=== PATIENT | female | born 1985 | race Caucasian/White ===

== ENCOUNTER 2019-10-25 11:58 | Observation (INO) | payer OTHER ==
[2019-10-25] MEDS ORDERED: SODIUM CHLORIDE 0.9% 1,000 ML IV ONE (13:09)
[2019-10-25] MEDS ORDERED: ONDANSETRON 4 MG/2 ML VIAL IVP STA (13:09)
[2019-10-25] MEDS ORDERED: diazePAM INJ 5 MG/ML SYRINGE IVP STA (13:09)
[2019-10-25 13:30] LABS: BASOPHILS # (AUTO) 0.1 10^3/uL (0.0-0.1); BASOPHILS % (AUTO) 0.7 %; EOSINOPHILS # (AUTO) 0.3 10^3/uL (0.0-0.7); EOSINOPHILS % (AUTO) 2.5 %; HGB - HEMOGLOBIN 14.3 g/dL (12.0-16.0); LYMPHOCYTES # (AUTO) 2.8 10^3/uL (1.5-3.5); LYMPHOCYTES % (AUTO) 28.7 %; MEAN CORPUSCULAR HEMOGLOBIN 32.1 pg (27.0-31.0); MEAN CORPUSCULAR HGB CONC 34.7 g/dL (32.0-36.0); MEAN CORPUSCULAR VOLUME 92.4 fL (81.0-99.0); MEAN PLATELET VOLUME 10.8 fL (7.9-10.8); MONOCYTES # (AUTO) 0.7 10^3/uL (0.0-1.0); MONOCYTES % (AUTO) 6.7 %; NEUTROPHILS # (AUTO) 5.9 10^3/uL (1.5-6.6); NEUTROPHILS % (AUTO) 60.6 %; PLT - PLATELET COUNT 205 10^3/uL (130-450); RED BLOOD COUNT 4.46 10^6/uL (4.20-5.40); RED CELL DISTRIBUTION WIDTH 13.5 % (12.0-15.0); WHITE BLOOD COUNT 9.8 x10^3/uL (4.8-10.8)
[2019-10-25] MEDS ORDERED: KETOROLAC 30 MG/ML VIAL IVP STA (13:43)
[2019-10-25 13:44] LABS: CALCIUM 8.7 mg/dL (8.5-10.3); CREATININE 0.8 mg/dL (0.4-1.0)
--- NOTE | 2019-10-25 15:02 | CT Report ---
Reason: dizziness Procedure Date: 10/25/2019 Accession Number: [id number] / [id number] Procedure: CT - HEAD WO CPT Code: Final Report FULL RESULT: EXAM: CT HEAD EXAM DATE: 10/25/2019 02:35 PM. CLINICAL HISTORY: Dizziness. COMPARISON: None. TECHNIQUE: Multiaxial CT images were obtained from the foramen magnum to the vertex. Reformats: Sagittal and coronal. IV contrast: None. In accordance with CT protocol optimization, one or more of the following dose reduction techniques were utilized for this exam: automated exposure control, adjustment of mA and/or KV based on patient size, or use of iterative reconstructive technique. FINDINGS: Parenchyma: No intraparenchymal hemorrhage. No evidence of mass, midline shift, or CT findings of infarction. Nieves-white differentiation is distinct. Extraaxial Spaces: Normal for age. No subdural or epidural collections identified. Ventricles: Normal in size and position. Sinuses and Orbits: Imaged paranasal sinuses, orbits, and mastoids show no significant abnormality. Bones: No evidence of fracture or calvarial defect. Other: None. IMPRESSION: No significant intracranial abnormality. RADIA
[2019-10-25] MEDS ORDERED: PROMETHAZINE INJ 25 MG in SODIUM CHLORIDE 0.9% 50 ML IV STA (15:11)
--- NOTE | 2019-10-25 16:33 | ED Physician Documentation ---
History of Present Illness - Stated complaint Stated Complaint: NAUSEA/DIZZINESS - Chief complaint Chief Complaint: Heent - History obtained from History obtained from: Patient - History of Present Illness Timing: Today - Additonal information Additional information: This is a 34-year-old woman who presents with her complaints that she is very dishes dizzy and nauseous and now her back hurts and her ear hurts. She woke up at 5 AM and before she even got out of bed she was nauseous with any movement in the room was spinning around. She denied any vomiting. She denies headache. She had a mildly stuffy nose and right ear pain. No fever. No cough. The patient took a baclofen this morning that she uses a muscle relaxer for her chronic back pain but it has not helped at all. She did not take any of her meds other medications for her asthma or anxiety. She denies stating she status post hysterectomy and oophorectomy. Review of Systems Constitutional: denies: Fever Ears: reports: Ear pain Nose: reports: Rhinorrhea / runny nose Throat: denies: Sore throat GI: reports: Nausea. denies: Vomiting, Diarrhea : reports: Hysterectomy. denies: Dysuria, Now EGA Musculoskeletal: reports: Back pain (Chronic back pain). denies: Neck pain Neurologic: denies: Generalized weakness, Focal weakness, Numbness, Near syncope, Syncope, Headache Endocrine: reports: Other (She is not diabetic) PD PAST MEDICAL HISTORY - Past Medical History Past Medical History: Yes Cardiovascular: Hypertension, High cholesterol Respiratory: Asthma Neuro: None Endocrine/Autoimmune: None GI: None REAL ESTATE CLERK: Endometriosis : None HEENT: None Psych: None Musculoskeletal: None Derm: None Other Past Medical History: vertigo - Past Surgical History Past Surgical History: Yes General: Gastric surgery /REAL ESTATE CLERK: section, Hysterectomy, Oophrectomy - Allergies Allergies/Adverse Reactions: Allergies Allergy/AdvReac Type Severity Reaction Status Date / Time No Known Drug Allergies Allergy Verified 10/25/19 12:30 - Social History Does the pt smoke?: No Smoking Status: Never smoker Does the pt drink ETOH?: Yes Does the pt have substance abuse?: No - Immunizations Immunizations are current?: Yes - POLST Patient has POLST: No PD ED PE NORMAL - Vitals Vital signs reviewed: Yes - General General: Alert and oriented X 3, No acute distress, Well developed/nourished, Other (Overweight 34-year-old woman who sitting on the exam chair leaning forward holding an emesis bag in front of her with her eyes closed and leaning her head down onto her hand.) - HEENT HEENT: Atraumatic - Cardiac Cardiac: RRR, No murmur, Strong equal pulses - Respiratory Respiratory: No respiratory distress, Clear bilaterally - Abdomen Abdomen: Normal bowel sounds, Soft - Neuro Neuro: Alert and oriented X 3, No motor deficit, No sensory deficit, Normal speech, Other (The exam had to be cut short due to the fact that as I was testing the patient's extraocular muscles she just suddenly started dry heaving she did have nystagmus bilaterally. There were no other apparent neurological deficits. Pupils were equal round reactive to light and all the extraocular muscles were intact.) Results - Vitals Vitals: Vital Signs - 24 hr 10/25/19 10/25/19 10/25/19 12:27 12:42 16:42 Temperature 36.4 C L 36.6 C 36.5 C Heart Rate 85 75 94 Respiratory 18 18 18 Rate Blood Pressure 144/95 H 150/84 H 126/62 O2 Saturation 100 97 99 Oxygen O2 Source Room air - EKG (time done) 1313 Rate: Rate (enter#) (75) Rhythm: NSR Intervals: No: Wide QRS Ischemia: Non specific changes Compare to prior EKG: Old EKG unavailable - Labs Labs: Laboratory Tests 10/25/19 10/25/19 13:22 13:22 WBC 9.8 RBC 4.46 Hgb 14.3 Hct 41.2 MCV 92.4 MCH 32.1 H MCHC 34.7 RDW 13.5 Plt Count 205 MPV 10.8 Neut # (Auto) 5.9 Lymph # (Auto) 2.8 [place] # (Auto) 0.7 Eos # (Auto) 0.3 Baso # (Auto) 0.1 Absolute Nucleated RBC 0.00 Nucleated RBC % 0.0 Sodium 135 Potassium 3.7 Chloride 100 L Carbon Dioxide 23 Anion Gap 12.0 BUN 11 Creatinine 0.8 Estimated GFR (MDRD) 82 L Glucose 99 Calcium 8.7 - Rads (name of study) ct head Radiology: See rad report (neg) PD MEDICAL DECISION MAKING - ED course Complexity details: reviewed results, re-evaluated patient, d/w patient ED course: Patient had an IV started and was given immediately Zofran 4 mg, Valium [address] of the head was negative. Her CBC and BMP were normal. She was complaining of the back pain to the nursing staff so she was given Toradol IV. She continued to complain of nausea so she was given Phenergan 25 mg IV and on reevaluation she is on her right side sleeping but when I aroused her she opened her eyes quick and then shut them because she was still dizzy and nauseous. Is also complaining of pain in her upper back which is a chronic pain for her she just cannot get it under control with all of this vomiting. She was given 4 mg of morphine IV and will reassess from there. 1726: Patient had some improvement following the morphine said that she was still dizzy but it was certainly less. I had a chance to examine her ears and they are both clear despite the right ear pain. She thought she could tolerate an oral medication so I have written for meclizine 50 mg p.o. and will reassess. 1804: The patient is still having dizziness and had some dry heaving. I think she should be admitted for observation and may end up warranting us MRI scan. Discussed with Dr. Newton and he is agreed to accept the patient for admission. Departure - Departure Disposition: ED Place in Observation Clinical Impression: Vertigo Condition: Good
[2019-10-25] MEDS ORDERED: MORPHINE 2 MG/ML CARPUJECT IVP STA (16:34)
[2019-10-25] MEDS ORDERED: MECLIZINE 12.5 MG TABLET PO STA (17:25)
[2019-10-25] MEDS ORDERED: PROCHLORPERAZINE 10 MG/2 ML VIAL IVP PRN (18:04)
[2019-10-25] MEDS ORDERED: ONDANSETRON 4 MG/2 ML VIAL IVP PRN (18:04)
[2019-10-25] MEDS ORDERED: SODIUM CHLORIDE FLUSH 0.9% 10 ML SYRINGE IVP PRN (18:04)
--- NOTE | 2019-10-25 20:29 | HISTORY & PHYSICAL EXAMINATION ---
Chief Complaint - Chief Complaint Chief Complaint: dizziness, nausea and vomiting History of Present Illness - Admitted From Admitted From:: [facility] - History Obtained From Records Reviewed: yes History obtained from: patient - History of Present Illness HPI Comment/Other: Patient is a 34 y/o female who presented to the ED with complain of dizziness, nausea and dry heaving which started this morning when she woke up. She reports feeling under the weather yesterday but thought it was because she was tired and her back was hurting. She took her kids to school then went to work. However, everything was spinning so her brought her to the ED. She denies headache or double vision. She reports tightness in the muscles of her left shoulder and back of neck since she slipped on ice 2 weeks ago. She denied chest pain, dyspnea, fever or chills. She reports abdominal pain but thinks it is from not eating. Work up in the ED included a CT of the brain, BMP and CC. These were unremarkable. She was given meclizine, valium, zofran and toradol with no improvement in her symptoms. As a result she was presented for admission. At bedside her nausea has subsided. She was able to tolerate jello. However her dizziness persists. She is being admitted for further evaluation and treatment. History - Past Medical History Cardiovascular: reports: Hypertension, High cholesterol Respiratory: reports: Asthma Neuro: reports: None Endocrine/Autoimmune: reports: None GI: reports: None PLASTIC WELDER: reports: Endometriosis : reports: None HEENT: reports: None Psych: reports: None Musculoskeletal: reports: None Derm: reports: None MRSA Hx?: No Other Past Medical History: vertigo - Past Surgical History General: reports: Gastric surgery /PLASTIC WELDER: reports: section, Hysterectomy, Oophrectomy - Family & Social History Family History Comment/Other: mother: fibromyalgia, HTN, Hyperlipidemia, Depression, Anxiety. father: HTN, Hyperlipidemia. son: ADHD Living arrangement: At home Living Situation: With family Social History Notes: She smoked about 1/4ppd X 17 yrs. She drinks alcohol socially. She denies any illicit drug use. - POLST Patient has POLST: No POLST Status: Full Code Meds/Allgy - Allergies Allergies/Adverse Reactions: Allergies Allergy/AdvReac Type Severity Reaction Status Date / Time No Known Drug Allergies Allergy Verified 10/25/19 12:30 Review of Systems - Constitutional Constitutional: reports: Poor appetite. denies: Fever, Chills - Eyes Eyes: reports: Blurred vision. denies: Vision loss, Dipolpia - Ears, Nose & Throat Ears, Nose & Throat: reports: Vertigo. denies: Tinnitus, Sore throat, Hoarseness - Cardiovascular Cariovascular: reports: Lightheadedness. denies: Chest pain, Edema, Syncope, Exertional dyspnea, Decr. exercise tolerance - Respiratory Respiratory: denies: Cough, Sputum production, Wheezing, SOB at rest, SOB with exertion - Gastrointestinal Gastrointestinal: reports: Nausea. denies: Abdominal pain, Vomiting, Coffee grounds emesis, Reflux/heartburn - Genitourinary Genitourinary: denies: Dysuria, Frequency, Urgency, Hematuria - Musculoskeletal Musculoskeletal: reports: Back pain (chronic). denies: Muscle pain - Integumentary Integumentary: denies: Rash, Pruritis, Lesions, Dryness - Neurological Neurological: reports: Dizziness. denies: General weakness, Focal weakness, Headache - Psychiatric Psychiatric: reports: Depression, Anxiety - Endocrine Endocrine: denies: Polyuria, Polydypsia - Hematologic/Lymphatic Hematologic/Lymphatic: denies: Anemia, Bruising Prior Level of Functionality: She is independent of activities of daily living Exam - Vital Signs Vital Signs: Vital Signs x48h Temp Pulse Pulse Resp BP BP Pulse Ox 10/25/19 19:05 36.4 C L 73 18 103/62 97 10/25/19 18:30 36.6 C 74 16 129/56 L 97 10/25/19 16:42 36.5 C 94 18 126/62 99 10/25/19 12:42 36.6 C 75 18 150/84 H 97 - Physical Exam General Appearance: positive: Alert, Mild distress Eyes Bilateral: positive: Normal inspection, PERRL, EOMI ENT: positive: Pharynx nml, No signs of dehydration Neck: positive: Nml inspection, No JVD, Trachea midline Respiratory: positive: Chest non-tender, No respiratory distress, Breath sounds nml. negative: Wheezes, Rales, Rhonchi Cardiovascular: positive: Regular rate & rhythm Abdomen: positive: Non-tender, No organomegaly, Nml bowel sounds, No distention. negative: Guarding, Rebound Back: positive: Nml inspection Skin: positive: Color nml, No rash, Warm, Dry. negative: Cyanosis Extremities: positive: Non-tender, Full ROM, Nml appearance, No pedal edema Neurologic/Psychiatric: positive: Oriented x3, CN's nml (2-12), Motor nml, Sensation nml, Mood/affect nml Conclusion/Plan - Problem List (1) Vertigo Conclusion/Plan: DDx: BPPV vs Labyrinthitis. r/o CVA On meclizine, compazine and zofran If persists, will obtain MRI in the morning. If work up unremarkable, will refer to physical therapy for possibly Brayan maneuver (2) Hyperlipidemia Conclusion/Plan: Will resume atorvastatin once verified (3) Chronic back pain Conclusion/Plan: toradol ordered prn (4) Depression Conclusion/Plan: On zoloft (5) Anxiety Conclusion/Plan: Patient takes buspar (6) Asthma Conclusion/Plan: Not in exacerbation Albuterol prn (7) Hormone replacement therapy (HRT) Conclusion/Plan: Patient has Hx of hysterectomy. - Lab Results Fish Bones: 10/26/19 05:25 10/25/19 13:22 Core Measures - Anticipated LOS I expect patient to be DC'd or transferred within 96 hours.: Yes - DVT/VTE - Prophylaxis VTE/DVT Device ordered at admit?: Yes
[2019-10-25] MEDS: KETOROLAC 15 MG/ML VIAL IVP PRN (21:41)
[2019-10-25] MEDS: HEPARIN 5,000 UNIT/ML VIAL SUBQ SCH (21:56)
[2019-10-25] MEDS ORDERED: ALBUTEROL NEB 2.5 MG/3 ML INH PRN (22:18)
[2019-10-25] MEDS: SODIUM CHLORIDE FLUSH 0.9% 10 ML SYRINGE IVP SCH (23:58)
[2019-10-25] MEDS: MECLIZINE 12.5 MG TABLET PO PRN (23:58)
[2019-10-26] MEDS: KETOROLAC 15 MG/ML VIAL IVP PRN (05:25)
[2019-10-26] MEDS: MECLIZINE 12.5 MG TABLET PO PRN (05:25)
[2019-10-26 05:40] LABS: BASOPHILS % (AUTO) 0.6 %; EOSINOPHILS # (AUTO) 0.2 10^3/uL (0.0-0.7); EOSINOPHILS % (AUTO) 2.5 %; HGB - HEMOGLOBIN 13.1 g/dL (12.0-16.0); LYMPHOCYTES # (AUTO) 2.9 10^3/uL (1.5-3.5); LYMPHOCYTES % (AUTO) 40.2 %; MEAN CORPUSCULAR HEMOGLOBIN 31.7 pg (27.0-31.0); MEAN CORPUSCULAR HGB CONC 33.3 g/dL (32.0-36.0); MEAN CORPUSCULAR VOLUME 95.2 fL (81.0-99.0); MONOCYTES # (AUTO) 0.6 10^3/uL (0.0-1.0); MONOCYTES % (AUTO) 7.8 %; NEUTROPHILS # (AUTO) 3.5 10^3/uL (1.5-6.6); NEUTROPHILS % (AUTO) 48.2 %; PLT - PLATELET COUNT 171 10^3/uL (130-450); RED BLOOD COUNT 4.13 10^6/uL (4.20-5.40); RED CELL DISTRIBUTION WIDTH 13.6 % (12.0-15.0); WHITE BLOOD COUNT 7.2 x10^3/uL (4.8-10.8)
[2019-10-26 05:54] LABS: CALCIUM 8.3 mg/dL (8.5-10.3); CREATININE 0.8 mg/dL (0.4-1.0)
[2019-10-26 08:32] VITALS: BP 123/70
[2019-10-26] MEDS: SODIUM CHLORIDE FLUSH 0.9% 10 ML SYRINGE IVP SCH (08:45)
[2019-10-26] MEDS: HEPARIN 5,000 UNIT/ML VIAL SUBQ SCH (08:46)
--- NOTE | 2019-10-26 08:58 | Discharge Plan ---
Discharge Plan Problem Reviewed?: Yes Disposition: Home, Self Care Condition: Good Prescriptions: Meclizine HCl 25 mg PO Q6H PRN #10 tablet PRN Reason: Dizziness Diet: Regular Health Concerns: You were seen in the hospital because of severe vertigo. A CT scan of your head was normal. Your symptoms improved with meclizine which is a medication that can help with vertigo symptoms. You are now stable to be discharged home. You can continue to take meclizine as needed if you develop vertigo-like symptoms. If your symptoms return, please see your primary care physician or return to the emergency department. Plan of Treatment: You have been prescribed meclizine which you may take as prescribed as needed for vertigo-like symptoms and dizziness. Care Goals: Please follow-up with your primary care physician if your symptoms persist or return to the emergency department. No Smoking: If you smoke, Please STOP! Call for help. Follow-up with: Hari Mederos ARNP [Primary Care Provider] -
[2019-10-26] MEDS ORDERED: NICOTINE 14 MG PATCH TOP SCH (09:00)
--- NOTE | 2019-10-26 09:11 | DISCHARGE SUMMARY ---
"Discharge Summary Admit Date: 10/25/19 Discharge Date: 10/26/19 Discharging Provider: Yon Chaudhary Primary Care Provider: Hari Mederos Code Status: Attempt Resuscitation Condition at Discharge: Good Discharge Disposition: Home, Self Care - DIAGNOSES Admission Diagnoses: Vertigo Hyperlipidemia Chronic back pain Depression Anxiety Asthma Hormone replacement therapy Discharge Diagnoses with Status of Each Condition: Vertigo - improved. Reports her vertigo symptoms have improved she is able to ambulate without difficulty. Still has occasional dizziness but she would like to go home. She is prescribed meclizine 25 mg which she was asked to take as needed. I have also asked her to follow-up with her primary care physician if symptoms persist. Hyperlipidemia - stable. Continue her home statin. Chronic back pain - stable. We will continue her home medications. Depression - stable. She will continue her home Prozac. Anxiety - stable. We will continue her home prazosin and BuSpar. Asthma - stable. She will continue her home Symbicort, albuterol, Singulair. Hormone replacement therapy - She will continue him estrogen therapy. - HPI History of Present Illness: H&P per Dr. Ramirez on 10/25/19: Patient is a 34 y/o female who presented to the ED with complain of dizziness, nausea and dry heaving which started this morning when she woke up. She reports feeling under the weather yesterday but thought it was because she was tired and her back was hurting. She took her kids to school then went to work. However, everything was spinning so her brought her to the ED. She denies headache or double vision. She reports tightness in the muscles of her left shoulder and back of neck since she slipped on ice 2 weeks ago. She denied chest pain, dyspnea, fever or chills. She reports abdominal pain but thinks it is from not eating. Work up in the ED included a CT of the brain, BMP and CC. These were unremarkable. She was given meclizine, valium, zofran and toradol with no improvement in her symptoms. As a result she was presented for admission. At bedside her nausea has subsided. She was able to tolerate jello. However her dizziness persists. She is being admitted for further evaluation and treatment. - CONSULTS | PROCEDURES Procedures: CT head. - HOSPITAL COURSE Hospital Course: Admitted for intractable vertigo after she received treatment emergency department which included Toradol, meclizine, Valium, Zofran. A CT of the head was unremarkable. The following morning, she states her symptoms had significantly improved with just the use of meclizine as needed. She reported no more vertigo-like symptoms but continued to have some dizziness. She was eager to go home and therefore she was discharged and was provided with meclizine to take as needed. I recommended that she follow-up with her primary care physician if her symptoms persist. She was agreeable to this. - ALLERGIES Allergies/Adverse Reactions: Allergies Allergy/AdvReac Type Severity Reaction Status Date / Time No Known Drug Allergies Allergy Verified 10/25/19 12:30 - MEDICATIONS Home Medications: Ambulatory Orders Medication Instructions Recorded Confirmed Meclizine HCl 25 mg PO Q6H PRN #10 tablet 10/26/19 - PHYSICAL EXAM AT DISCHARGE General Appearance: positive: No acute distress, Alert Eyes Bilateral: positive: Normal inspection, PERRL, EOMI, Conjunctivae nml, Other (No nystagmus.) ENT: positive: ENT inspection nml Neck: positive: Nml inspection Respiratory: positive: No respiratory distress. negative: Wheezes, Rales, Rhonchi Cardiovascular: positive: Regular rate & rhythm. negative: Tachycardia, Bradycardia Abdomen: positive: Non-tender, No distention. negative: Tenderness Skin: positive: No rash, Warm, Dry Extremities: positive: Full ROM, No pedal edema Neurologic/Psychiatric: positive: Oriented x3, Motor nml. negative: Disoriented to person, Disoriented to place, Disoriented to time, Weakness - LABS Result Diagrams: 10/26/19 05:25 10/26/19 05:25 - FOLLOW UP Follow Up: She was asked to follow-up with her primary care physician. - TIME SPENT Time Spent in Discharge (Minutes): 30"
== END 2019-10-26 10:57 | disposition home or self-care (01) ==
LOC: ED 11:58 → MS2 18:04 → MS3 18:05
PROVIDERS: ADMIT Internal Medicine; ATTEND Internal Medicine
DX: R42 Dizziness and giddiness (principal); R11.2 Nausea with vomiting, unspecified; H92.01 Otalgia, right ear; R10.9 Unspecified abdominal pain; M54.89 Other dorsalgia; H55.00 Unspecified nystagmus; G89.29 Other chronic pain; J45.909 Unspecified asthma, uncomplicated; E78.5 Hyperlipidemia, unspecified; F32.9 Major depressive disorder, single episode, unspecified; F41.9 Anxiety disorder, unspecified; I10 Essential (primary) hypertension; Z90.710 Acquired absence of both cervix and uterus; Z79.899 Other long term (current) drug therapy; Z79.51 Long term (current) use of inhaled steroids; Z79.890 Hormone replacement therapy; Z87.891 Personal history of nicotine dependence
CPT/HCPCS: 36415; 70450; 80048; 85025; 93005; 96361; 96365; 96372; 96375; 96376; 99284; 99285; 99406; A9270; G0378; J7040

== ENCOUNTER 2020-04-01 21:21 | Emergency (ER) | payer OTHER ==
[2020-04-01 21:48] LABS: BILIRUBIN,URINE NEGATIVE (NEGATIVE); GLUCOSE, URINE (UA) NEGATIVE (NEGATIVE); KETONES,URINE (UA) NEGATIVE (NEGATIVE); LEUKOCYTE ESTERASE, URINE NEGATIVE (NEGATIVE); NITRITE,URINE NEGATIVE (NEGATIVE); OCCULT BLOOD,URINE NEGATIVE (NEGATIVE); PH,URINE 6.5 PH (5.0-7.5); PROTEIN,URINE NEGATIVE (NEGATIVE); UROBILINOGEN,URINE 0.2 (NORMAL) E.U./dL (NORMAL)
[2020-04-01 21:51] LABS: CLARITY,URINE CLEAR (CLEAR)
[2020-04-01 21:52] LABS: HCG UR QUAL NEGATIVE
[2020-04-01 21:55] LABS: BASOPHILS # (AUTO) 0.1 10^3/uL (0.0-0.1); BASOPHILS % (AUTO) 0.5 %; EOSINOPHILS # (AUTO) 0.2 10^3/uL (0.0-0.7); EOSINOPHILS % (AUTO) 1.9 %; HGB - HEMOGLOBIN 13.7 g/dL (12.0-16.0); LYMPHOCYTES # (AUTO) 2.8 10^3/uL (1.5-3.5); LYMPHOCYTES % (AUTO) 29.4 %; MEAN CORPUSCULAR HEMOGLOBIN 30.4 pg (27.0-31.0); MEAN CORPUSCULAR HGB CONC 33.6 g/dL (32.0-36.0); MEAN CORPUSCULAR VOLUME 90.5 fL (81.0-99.0); MEAN PLATELET VOLUME 10.8 fL (7.9-10.8); MONOCYTES # (AUTO) 0.5 10^3/uL (0.0-1.0); MONOCYTES % (AUTO) 5.6 %; NEUTROPHILS # (AUTO) 5.9 10^3/uL (1.5-6.6); NEUTROPHILS % (AUTO) 62.2 %; PLT - PLATELET COUNT 157 10^3/uL (130-450); RED BLOOD COUNT 4.51 10^6/uL (4.20-5.40); RED CELL DISTRIBUTION WIDTH 13.2 % (12.0-15.0); WHITE BLOOD COUNT 9.5 x10^3/uL (4.8-10.8)
[2020-04-01 22:10] LABS: ALBUMIN 4.4 g/dL (3.2-5.5); ALBUMIN/GLOBULIN RATIO 1.4 (1.0-2.2); BILIRUBIN,TOTAL 0.7 mg/dL (0.2-1.0); CALCIUM 9.1 mg/dL (8.5-10.3); CREATININE 0.8 mg/dL (0.4-1.0); TOTAL PROTEIN 7.6 g/dL (6.7-8.2)
[2020-04-01] MEDS ORDERED: KETOROLAC 30 MG/ML VIAL IVP STA (22:57)
[2020-04-01] MEDS ORDERED: ONDANSETRON 4 MG/2 ML VIAL IVP STA (22:57)
[2020-04-01] MEDS ORDERED: IOVERSOL 320 100 ML VIAL IVP ONE ×3 (23:20→23:48)
[2020-04-02] MEDS ORDERED: HYDROmorphone 1 MG/ML CARPUJECT IVP STA ×2 (00:04→01:58)
[2020-04-02] MEDS ORDERED: HYDROcod/ACET 5/325 Prepack 4 PO STA (01:59)
[2020-04-02 02:29] VITALS: BP 142/93
--- NOTE | 2020-04-02 07:24 | ED Physician Documentation ---
PD HPI ABD PAIN - Stated complaint Stated Complaint: LOW BACK PAIN, FREQUENT URINATION - Chief complaint Chief Complaint: Abd Pain - History obtained from History obtained from: Patient - History of Present Illness Timing - onset: How many days ago (2-3) Timing - duration: Days Timing - details: Abrupt onset, Intermittant Pain level now: 6 Quality: Pain Location: RLQ Radiation: Right flank Associated symptoms: Nausea. No: Fever, Vomiting, Diarrhea, Constipation Similar symptoms before: Diagnosis (similar to previous renal colic) Recently seen: Not recently seen - Additional information Additional information: "last couple of days, I've had side pain", c/o right abdominal and right flank pain Review of Systems Constitutional: denies: Fever, Chills, Sweats Cardiac: reports: Reviewed and negative Respiratory: reports: Reviewed and negative GI: reports: Abdominal Pain, Nausea. 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 : None HEENT: None Psych: Depression, Anxiety, ADD/ADHD Musculoskeletal: None Derm: None - Past Surgical History Past Surgical History: Yes General: Gastric surgery /WET PLANT OPERATOR: section, Hysterectomy, Oophrectomy - Present Medications Home Medications: Ambulatory Orders Medication Instructions Recorded Confirmed Albuterol Sulfate [Albuterol 8.5 gm IH QID PRN 04/01/20 04/01/20 Sulfate Hfa] Budesonide/Formoterol Fumarate 10.2 gm IH DAILY 04/01/20 04/01/20 [Symbicort 160-4.5 Mcg Inhaler] Dextroamphetamine/Amphetamine 10 mg PO DAILY 04/01/20 04/01/20 [Adderall 10 mg Tablet] Estradiol [Estrace] 1.5 mg PO DAILY 04/01/20 04/01/20 Fluoxetine HCl [Prozac] 80 mg PO DAILY 04/01/20 04/01/20 Methylphenidate HCl [Concerta] 36 mg PO DAILY 04/01/20 04/01/20 Pravastatin [Pravachol] 80 mg ORAL DAILY 04/01/20 04/01/20 Progesterone, Micronized 100 mg PO DAILY 04/01/20 04/01/20 [Progesterone] Oxycodone HCl/Acetaminophen 1 - 2 each PO Q6H PRN #10 tablet 04/02/20 [Percocet 5-325 mg Tablet] - Allergies Allergies/Adverse Reactions: Allergies Allergy/AdvReac Type Severity Reaction Status Date / Time No Known Drug Allergies Allergy Verified 04/01/20 21:33 - Social History Does the pt smoke?: No Smoking Status: Never smoker Does the pt drink ETOH?: Yes Does the pt have substance abuse?: No - Immunizations Immunizations are current?: Yes - POLST Patient has POLST: No POLST Status: Full Code PD ED PE NORMAL - Vitals Vital signs reviewed: Yes - General General: Alert and oriented X 3, No acute distress, Well developed/nourished - HEENT HEENT: Moist mucous membranes - Neck Neck: Supple, no meningeal sign - Cardiac Cardiac: RRR, No murmur - Respiratory Respiratory: No respiratory distress, Clear bilaterally - Abdomen Abdomen: Soft, Non distended, Other (mild RLQ TTP without rebound or guarding) - Back Back: No CVA TTP - Derm Derm: Normal color, Warm and dry, No rash Results - Vitals Vitals: Vital Signs - 24 hr 04/02/20 04/02/20 04/02/20 00:44 01:39 02:28 Heart Rate 78 90 97 Respiratory 18 18 18 Rate Blood Pressure 121/87 H 129/83 H 142/93 H O2 Saturation 99 96 99 Oxygen O2 Source Room air - Labs Labs: Laboratory Tests 04/01/20 04/01/20 04/01/20 21:36 21:50 21:50 WBC 9.5 RBC 4.51 Hgb 13.7 Hct 40.8 MCV 90.5 MCH 30.4 MCHC 33.6 RDW 13.2 Plt Count 157 MPV 10.8 Neut # (Auto) 5.9 Lymph # (Auto) 2.8 [place] # (Auto) 0.5 Eos # (Auto) 0.2 Baso # (Auto) 0.1 Absolute Nucleated RBC 0.00 Nucleated RBC % 0.0 Sodium 136 Potassium 3.5 Chloride 99 L Carbon Dioxide 27 Anion Gap 10.0 BUN 9 Creatinine 0.8 Estimated GFR (MDRD) 82 L Glucose 92 Calcium 9.1 Total Bilirubin 0.7 AST 19 ALT 22 Alkaline Phosphatase 65 Total Protein 7.6 Albumin 4.4 Globulin 3.2 Albumin/Globulin Ratio 1.4 Lipase 136 H Urine Color YELLOW Urine Clarity CLEAR Urine pH 6.5 Ur Specific [place] <=1.005 Urine Protein NEGATIVE Urine Glucose (UA) NEGATIVE Urine Ketones NEGATIVE Urine Occult Blood NEGATIVE Urine Nitrite NEGATIVE Urine Bilirubin NEGATIVE Urine Urobilinogen 0.2 (NORMAL) Ur Leukocyte Esterase NEGATIVE Ur Microscopic Review NOT INDICATED Urine Culture Comments NOT INDICATED Urine HCG, Qual NEGATIVE - Rads (name of study) CT A/P Radiology: Prelim report reviewed, See rad report PD MEDICAL DECISION MAKING - ED course Complexity details: reviewed results, re-evaluated patient, considered differential, d/w patient Departure - Departure Disposition: 01 Home, Self Care Clinical Impression: Abdominal pain Qualifiers: Abdominal location: right lower quadrant Qualified Code(s): R10.31 - Right lower quadrant pain Condition: Good Instructions: ED Abdominal Pain Unkn Cause, COVID-19 [facility], COVID-19 Merg[facility] With [facility] Department Statement Follow-Up: Hari Mederos ARNP [Primary Care Provider] - Prescriptions: Oxycodone HCl/Acetaminophen [Percocet 5-325 mg Tablet] 1 - 2 each PO Q6H PRN #10 tablet PRN Reason: pain Discharge Date/Time: 04/02/20 02:35
--- NOTE | 2020-04-02 08:40 | CT Report ---
PROCEDURE: Abdomen/Pelvis W INDICATIONS: RLQ pain,tenderness CONTRAST: IV CONTRAST: Optiray 320 ml: 100 PO CONTRAST: *NO PO CONTRAST TECHNIQUE: After the administration of oral and intravenous contrast, 5 mm thick sections acquired from the diap hragms to the symphysis. 5 mm thick coronal and sagittal reformats were acquired. For radiation dos e reduction, the following was used: automated exposure control, adjustment of mA and/or kV accordin g to patient size. COMPARISON: None. FINDINGS: Image quality: Excellent. ABDOMEN: Lung bases: Lung bases are clear. Heart size is normal. Solid organs: Liver and spleen are normal in size and enhancement. Gallbladder is unremarkable. Bi liary system is non dilated. Pancreas enhances normally. No adrenal nodules. Kidneys demonstrate n ormal size and enhancement, without hydronephrosis. Peritoneum and bowel: Bowel loops demonstrate normal wall thickness and caliber. No free fluid or a ir. Normal appendix. Nodes and vessels: No retroperitoneal or mesenteric adenopathy by size criteria. Aorta and inferior vena cava are normal in size. Miscellaneous: No ventral hernias. PELVIS: Genitourinary: Bladder wall thickness is normal. Surgically absent uterus. Miscellaneous: No inguinal hernias or adenopathy. Bones: No suspicious bony lesions. No vertebral body compression fractures. IMPRESSION: 1. No CT evidence of acute process. 2. Post hysterectomy. 3. Normal appendix. 4. Concordant with preliminary report. Reviewed by: Krissy Johns MD on 04/02/2020 8:38 AM PDT Approved by: Krissy Johns MD on 04/02/2020 8:38 AM PDT Station ID: [id number]
== END 2020-04-02 02:35 | disposition home or self-care (01) ==
LOC: ED 21:21
DX: R10.31 Right lower quadrant pain (principal); R11.0 Nausea; I10 Essential (primary) hypertension; Z11.59 Encounter for screening for other viral diseases
CPT/HCPCS: 36415; 74177; 80053; 81003; 81025; 81599; 83690; 85025; 96374; 96375; 96376; 99284; J1170; Q9967; 81001; 87086

== ENCOUNTER 2020-04-05 11:21 | Emergency (ER) | payer OTHER ==
[2020-04-05 11:44] LABS: BILIRUBIN,URINE NEGATIVE (NEGATIVE); GLUCOSE, URINE (UA) NEGATIVE (NEGATIVE); KETONES,URINE (UA) NEGATIVE (NEGATIVE); LEUKOCYTE ESTERASE, URINE NEGATIVE (NEGATIVE); NITRITE,URINE NEGATIVE (NEGATIVE); OCCULT BLOOD,URINE NEGATIVE (NEGATIVE); PROTEIN,URINE NEGATIVE (NEGATIVE); UROBILINOGEN,URINE 0.2 (NORMAL) E.U./dL (NORMAL)
[2020-04-05 11:47] LABS: CLARITY,URINE CLEAR (CLEAR); HCG UR QUAL NEGATIVE
[2020-04-05 13:06] LABS: BASOPHILS # (AUTO) 0.1 10^3/uL (0.0-0.1); BASOPHILS % (AUTO) 0.6 %; EOSINOPHILS # (AUTO) 0.2 10^3/uL (0.0-0.7); EOSINOPHILS % (AUTO) 1.9 %; HGB - HEMOGLOBIN 13.9 g/dL (12.0-16.0); LYMPHOCYTES # (AUTO) 2.3 10^3/uL (1.5-3.5); LYMPHOCYTES % (AUTO) 28.7 %; MEAN CORPUSCULAR HGB CONC 33.7 g/dL (32.0-36.0); MONOCYTES # (AUTO) 0.5 10^3/uL (0.0-1.0); MONOCYTES % (AUTO) 6.2 %; NEUTROPHILS % (AUTO) 62.1 %; PLT - PLATELET COUNT 165 10^3/uL (130-450); RED BLOOD COUNT 4.49 10^6/uL (4.20-5.40); RED CELL DISTRIBUTION WIDTH 13.3 % (12.0-15.0); WHITE BLOOD COUNT 8.1 x10^3/uL (4.8-10.8)
[2020-04-05 13:19] LABS: ALBUMIN 4.2 g/dL (3.2-5.5); ALBUMIN/GLOBULIN RATIO 1.3 (1.0-2.2); BILIRUBIN,TOTAL 0.5 mg/dL (0.2-1.0); CALCIUM 9.3 mg/dL (8.5-10.3); CREATININE 0.9 mg/dL (0.4-1.0); TOTAL PROTEIN 7.4 g/dL (6.7-8.2)
[2020-04-05] MEDS ORDERED: HYDROmorphone 1 MG/ML CARPUJECT IVP STA ×2 (13:46→14:57)
--- NOTE | 2020-04-05 14:05 | ED Physician Documentation ---
History of Present Illness - Stated complaint Stated Complaint: R SIDE PX - Chief complaint Chief Complaint: Abd Pain - History obtained from History obtained from: Patient, Other (chart) - History of Present Illness Timing: Prior to arrival, How many weeks ago (1) Pain level max: 10 Pain level now: 8 Improved by: percocet - Additonal information Additional information: 34-year-old female returns to the emergency department after being seen a few days ago with chief complaint of right-sided abdominal pain. At the time of her visit 2 days ago her labs were unremarkable and a CT of the abdomen and pelvis did not reveal any acute pathology. Patient reports that since being seen her pain has been unabated. She has some nausea but no vomiting. No diarrhea. No fevers or dysuria. Past surgical history is most significant for C-sections, total abdominal hysterectomy, and an exploratory surgery for evaluation of endometriosis. Patient reports to me that she has follow-up scheduled with her primary care doctor in about 4 days but cannot tolerate the pain any longer. Review of Systems Constitutional: denies: Fever Cardiac: denies: Chest pain / pressure, Palpitations Respiratory: denies: Dyspnea, Cough GI: reports: Abdominal Pain, Nausea. 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: section, Hysterectomy, Oophrectomy - Present Medications Home Medications: Ambulatory Orders Medication Instructions Recorded Confirmed Albuterol Sulfate [Albuterol 8.5 gm IH QID PRN 04/01/20 04/01/20 Sulfate Hfa] Budesonide/Formoterol Fumarate 10.2 gm IH DAILY 04/01/20 04/01/20 [Symbicort 160-4.5 Mcg Inhaler] Dextroamphetamine/Amphetamine 10 mg PO DAILY 04/01/20 04/01/20 [Adderall 10 mg Tablet] Estradiol [Estrace] 1.5 mg PO DAILY 04/01/20 04/01/20 Fluoxetine HCl [Prozac] 80 mg PO DAILY 04/01/20 04/01/20 Methylphenidate HCl [Concerta] 36 mg PO DAILY 04/01/20 04/01/20 Pravastatin [Pravachol] 80 mg ORAL DAILY 04/01/20 04/01/20 Progesterone, Micronized 100 mg PO DAILY 04/01/20 04/01/20 [Progesterone] Oxycodone HCl/Acetaminophen 1 - 2 each PO Q6H PRN #10 tablet 04/02/20 [Percocet 5-325 mg Tablet] - Allergies Allergies/Adverse Reactions: Allergies Allergy/AdvReac Type Severity Reaction Status Date / Time No Known Drug Allergies Allergy Verified 04/05/20 11:27 - Social History Does the pt smoke?: No Smoking Status: Never smoker Does the pt drink ETOH?: Yes Does the pt have substance abuse?: No - Immunizations Immunizations are current?: Yes - POLST Patient has POLST: No POLST Status: Full Code PD ED PE NORMAL - General General: Alert and oriented X 3, Well developed/nourished, Other (appears uncomfortable) - HEENT HEENT: PERRL, EOMI - Neck Neck: No adenopathy - Cardiac Cardiac: RRR, No murmur - Respiratory Respiratory: Clear bilaterally - Abdomen Abdomen: Other (Right sided abdominal pain. Nonfocal and diffuse. Negative Ku's. Negative McBurney.No guarding or rebound.) - Back Back: No: No CVA TTP, No spinal TTP - Derm Derm: Normal color, Warm and dry, No rash - Extremities Extremities: No deformity. No: No tenderness to palpate - Neuro Neuro: Alert and oriented X 3, canary breeder 2-12 intact, No motor deficit Results - Vitals Vitals: Vital Signs - 24 hr 04/05/20 04/05/20 11:23 13:58 Temperature 36.4 C L Heart Rate 97 86 Respiratory 18 18 Rate Blood Pressure 138/108 H 144/97 H O2 Saturation 98 98 Oxygen O2 Source Room air - Labs Labs: Laboratory Tests 04/05/20 04/05/20 04/05/20 11:33 13:00 13:00 WBC 8.1 RBC 4.49 Hgb 13.9 Hct 41.3 MCV 92.0 MCH 31.0 MCHC 33.7 RDW 13.3 Plt Count 165 MPV 11.0 H Neut # (Auto) 5.0 Lymph # (Auto) 2.3 [place] # (Auto) 0.5 Eos # (Auto) 0.2 Baso # (Auto) 0.1 Absolute Nucleated RBC 0.00 Nucleated RBC % 0.0 Sodium 138 Potassium 4.4 Chloride 100 L Carbon Dioxide 25 Anion Gap 13.0 BUN 10 Creatinine 0.9 Estimated GFR (MDRD) 72 L Glucose 97 Calcium 9.3 Total Bilirubin 0.5 AST 19 ALT 18 Alkaline Phosphatase 59 Total Protein 7.4 Albumin 4.2 Globulin 3.2 Albumin/Globulin Ratio 1.3 Lipase 32 Urine Color YELLOW Urine Clarity CLEAR Urine pH 7.0 Ur Specific [place] <=1.005 Urine Protein NEGATIVE Urine Glucose (UA) NEGATIVE Urine Ketones NEGATIVE Urine Occult Blood NEGATIVE Urine Nitrite NEGATIVE Urine Bilirubin NEGATIVE Urine Urobilinogen 0.2 (NORMAL) Ur Leukocyte Esterase NEGATIVE Ur Microscopic Review NOT INDICATED Urine Culture Comments NOT INDICATED Urine HCG, Qual NEGATIVE - Rads (name of study) Abd US Radiology: Final report received (Head of pancreas appears slightly echogenic which is nonspecific but may represent early pancreatitis.Recommend correlation with laboratory evaluation. Findings suggestive of hepatic steatosis. No focal intrahepatic lesionsNo sonographic evidence for acute cholecystitis or cholelithiasis) PD MEDICAL DECISION MAKING - ED course Complexity details: reviewed old records, reviewed results, re-evaluated patient, d/w patient ED course: 34-year-old female presents to the emergency department with recurrent right- sided abdominal pain. Seen for similar a few days ago with negative CT scanning. - Her labs today show no acute focal abnormality. No leukocytosis no renal or hepatic dysfunction. - A limited abdominal ultrasound was completed and it shows no findings consistent with acute cholecystitis or Marce lithiasis. There was a concern for possible slightly echogenic head of the pancreas. However her lipase is normal. My suspicion for acute pancreatitis is low. - pt has no large stool burden seen on Ct 2 days ago to suggest constipative etiology - The cause of her abdominal pain is unclear at this time however given relatively normal abdominal ultrasound and recent CT scanning I do not feel that further work-up is warranted today. I discussed these findings with the patient. She did request a refill of her Percocet which I declined. - Advised patient to continue very close follow-up with her primary care physician. We discussed emergent return precautions for melena, fevers, u ncontrolled vomiting. Departure - Departure Disposition: Home, Self Care Condition: Stable Instructions: ED Abdominal Pain Unkn Cause Follow-Up: Hari Mederos ARNP [Primary Care Provider] - Within 1 week Comments: Valerie I hope that you are feeling better soon. Your labs today are very normal. Your abdominal ultrasound also did not show any cause for your abdominal pain. The CT scan completed 2 days ago was also very normal. Continue to follow-up with your primary care physician next week as scheduled. If you develop fevers, have uncontrolled vomiting, black or bloody stools then please return for second evaluation
--- NOTE | 2020-04-05 14:57 | Ultrasound Report ---
PROCEDURE: Abdomen Limited INDICATIONS: RUQ; recently negative CT; eval gb and renal; TECHNIQUE: Real-time scanning was performed of the abdominal and retroperitoneal organs, with image documentatio n. COMPARISON: CT abdomen and pelvis dated 04/01/2020. FINDINGS: Liver: Liver demonstrates geographic areas of heterogeneous echotexture without focal intrahepatic m ass lesions. Liver size is within normal limits. Gallbladder: Gallbladder is normal in sonographic appearance without gallstones, wall thickening, per icholecystic fluid, or abnormal sonographic Ku's. Biliary ducts: Intrahepatic bile ducts are non-dilated. Extrahepatic bile duct caliber measures 3 m m. Normal is 6-7 mm or less in diameter, or 10 mm or less post-cholecystectomy. Pancreas: Pancreas is not well visualized secondary to bowel gas. The head of the pancreas is slightl y echogenic in echotexture. Kidneys: Kidneys are normal in size and echotexture. Right kidney measures 9.9 cm long. No hydronep hrosis or nephrolithiasis; however, mild/trace right pelviectasis. No solid masses. Aorta: Limited visualization of the aorta due to bowel gas. No gross abnormalities. IVC: Intrahepatic inferior vena cava is patent. Miscellaneous: No free abdominal fluid. IMPRESSION: 1. Limited evaluation of the pancreas secondary to bowel gas. Head of the pancreas appears slightly e chogenic which is nonspecific but may represent early pancreatitis. Recommend correlation with labora tory evaluation. 2. Findings suggestive of hepatic steatosis versus chronic hepatocellular disease. No focal intrahepa tic lesions. 3. No sonographic evidence for acute cholecystitis or cholelithiasis. Reviewed by: Jim Monzon MD on 04/05/2020 2:55 PM PDT Approved by: Jim Monzon MD on 04/05/2020 2:55 PM PDT Station ID: [id number]
[2020-04-05] MEDS ORDERED: KETOROLAC 60 MG/2 ML VIAL IM STA (15:21)
[2020-04-05] MEDS ORDERED: KETOROLAC 30 MG/ML VIAL IVP STA (15:40)
[2020-04-05 16:20] VITALS: BP 135/88
== END 2020-04-05 16:21 | disposition home or self-care (01) ==
LOC: ED 11:21
DX: R10.9 Unspecified abdominal pain (principal)
CPT/HCPCS: 36415; 76705; 80053; 81003; 81025; 83690; 85025; 96374; 96375; 96376; 99284; J1170; 81001; 87086

== ENCOUNTER 2020-04-26 15:41 | Emergency (ER) | payer OTHER ==
--- NOTE | 2020-04-26 16:11 | ED Physician Documentation ---
PD HPI ABD PAIN - Stated complaint Stated Complaint: RIGHT SIDE PX - Chief complaint Chief Complaint: Abd Pain - History obtained from History obtained from: Patient - History of Present Illness Timing - onset: How many weeks ago Timing - duration: Weeks (several) Timing - details: Abrupt onset, Still present, Waxing and waning Quality: Cramping, Aching, Pain Location: RLQ (and right mid abd) Improved by: Laying still, Position (lying on right side). No: BM Worsened by: Eating, Moving, Palpation Associated symptoms: Nausea, Loss of appetite. No: Fever, Vomiting, Diarrhea, Constipation, Dysuria, Vaginal bleeding, Vaginal dc Similar symptoms before: No diagnosis Recently seen: Emergency Dept Review of Systems Constitutional: denies: Fever, Chills, Myalgias Nose: denies: Rhinorrhea / runny nose, Congestion Throat: denies: Sore throat Respiratory: denies: Cough GI: reports: Abdominal Swelling, Nausea. 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 : None HEENT: None Psych: Depression, Anxiety, ADD/ADHD Musculoskeletal: None Derm: None - Past Surgical History Past Surgical History: Yes General: Gastric surgery /TRACK LAYING MACHINE OPERATOR: section, Hysterectomy, Oophrectomy - Present Medications Home Medications: Ambulatory Orders Medication Instructions Recorded Confirmed Albuterol Sulfate [Albuterol 8.5 gm IH QID PRN 04/01/20 04/01/20 Sulfate Hfa] Budesonide/Formoterol Fumarate 10.2 gm IH DAILY 04/01/20 04/01/20 [Symbicort 160-4.5 Mcg Inhaler] Dextroamphetamine/Amphetamine 10 mg PO DAILY 04/01/20 04/01/20 [Adderall 10 mg Tablet] Estradiol [Estrace] 1.5 mg PO DAILY 04/01/20 04/01/20 Fluoxetine HCl [Prozac] 80 mg PO DAILY 04/01/20 04/01/20 Methylphenidate HCl [Concerta] 36 mg PO DAILY 04/01/20 04/01/20 Pravastatin [Pravachol] 80 mg ORAL DAILY 04/01/20 04/01/20 Progesterone, Micronized 100 mg PO DAILY 04/01/20 04/01/20 [Progesterone] Oxycodone HCl/Acetaminophen 1 - 2 each PO Q6H PRN #10 tablet 04/02/20 [Percocet 5-325 mg Tablet] Docusate Sodium 100 mg PO DAILY #30 capsule 04/26/20 Naproxen 375 mg PO BID #20 tablet 04/26/20 Psyllium Husk [Metamucil] 0.4 gm PO DAILY #30 capsule 04/26/20 Tramadol HCl 50 mg PO Q6H PRN #25 tablet 04/26/20 - Allergies Allergies/Adverse Reactions: Allergies Allergy/AdvReac Type Severity Reaction Status Date / Time No Known Drug Allergies Allergy Verified 04/26/20 15:54 - Social History Does the pt smoke?: No Smoking Status: Never smoker Does the pt drink ETOH?: Yes Does the pt have substance abuse?: No - Immunizations Immunizations are current?: Yes - POLST Patient has POLST: No POLST Status: Full Code PD ED PE NORMAL - Vitals Vital signs reviewed: Yes - General General: Alert and oriented X 3, Well developed/nourished, Other (appears in pain, lying right side with knees drawn up, hold hands to right abd. ) - Neck Neck: Supple, no meningeal sign, No adenopathy - Cardiac Cardiac: RRR, No murmur - Respiratory Respiratory: Clear bilaterally - Abdomen Abdomen: Normal bowel sounds, Soft, Non distended, No organomegaly, Other (tender right mid abd to RLQ with guarding but no percussion nor rebound. ) - Female Female : Deferred - Rectal Rectal: Deferred - Back Back: No CVA TTP - Derm Derm: Normal color, No rash - Neuro Neuro: Alert and oriented X 3, No motor deficit, Normal speech Results - Vitals Vitals: Oxygen O2 Source Room air - Labs Labs: Laboratory Tests 04/26/20 04/26/20 04/26/20 16:13 16:13 18:25 WBC 9.9 RBC 4.41 Hgb 14.0 Hct 40.8 MCV 92.5 MCH 31.7 H MCHC 34.3 RDW 13.2 Plt Count 169 MPV 11.4 H Neut # (Auto) 7.0 H Lymph # (Auto) 2.0 [place] # (Auto) 0.5 Eos # (Auto) 0.2 Baso # (Auto) 0.1 Absolute Nucleated RBC 0.00 Nucleated RBC % 0.0 Sodium 136 Potassium 3.9 Chloride 103 Carbon Dioxide 26 Anion Gap 7.0 BUN 10 Creatinine 0.9 Estimated GFR (MDRD) 72 L Glucose 90 Calcium 8.7 Total Bilirubin 0.6 AST 16 ALT 17 Alkaline Phosphatase 57 Total Protein 7.3 Albumin 4.1 Globulin 3.2 Albumin/Globulin Ratio 1.3 Lipase 38 Urine Color YELLOW Urine Clarity CLEAR Urine pH 7.5 Ur Specific [employer] 1.010 Urine Protein NEGATIVE Urine Glucose (UA) NEGATIVE Urine Ketones NEGATIVE Urine Occult Blood NEGATIVE Urine Nitrite NEGATIVE Urine Bilirubin NEGATIVE Urine Urobilinogen 0.2 (NORMAL) Ur Leukocyte Esterase NEGATIVE Ur Microscopic Review NOT INDICATED Urine Culture Comments NOT INDICATED PD MEDICAL DECISION MAKING - ED course Complexity details: reviewed old records, considered differential (has had prior labs and CTs without Dx. Given pain meds here and did not see value in imaging here. Next step in workup abd pain could be colonoscopy. ), d/w patient Departure - Departure Disposition: 01 Home, Self Care Clinical Impression: Right sided abdominal pain Condition: Stable Record reviewed to determine appropriate education?: Yes Instructions: ED Abdominal Pain Unkn Cause Follow-Up: Hari Mederos ARNP [Primary Care Provider] - Marie Reed MD [Provider Admit Priv/Credential] - Prescriptions: Docusate Sodium 100 mg PO DAILY #30 capsule Psyllium Husk [Metamucil] 0.4 gm PO DAILY #30 capsule Naproxen 375 mg PO BID #20 tablet Tramadol HCl 50 mg PO Q6H PRN #25 tablet PRN Reason: Pain Comments: Stay well-hydrated. Use daily stool softener to make sure you go easily. Also a daily fiber. Naproxen anti-inflammatory twice daily for 7 to 10 days. Add Tylenol or tramadol if needed for pains. Follow-up with your primary care and also call the surgery office for follow-up. Potential next steps in the evaluation of your pain may be colonoscopy to look for intestinal inflammatory diseases. Other considerations could be adhesions or scar tissue causing pain as well. Discharge Date/Time: 04/26/20 19:12
[2020-04-26 16:21] LABS: BASOPHILS # (AUTO) 0.1 10^3/uL (0.0-0.1); BASOPHILS % (AUTO) 0.7 %; EOSINOPHILS # (AUTO) 0.2 10^3/uL (0.0-0.7); LYMPHOCYTES % (AUTO) 20.4 %; MEAN CORPUSCULAR HEMOGLOBIN 31.7 pg (27.0-31.0); MEAN CORPUSCULAR HGB CONC 34.3 g/dL (32.0-36.0); MEAN CORPUSCULAR VOLUME 92.5 fL (81.0-99.0); MEAN PLATELET VOLUME 11.4 fL (7.9-10.8); MONOCYTES # (AUTO) 0.5 10^3/uL (0.0-1.0); MONOCYTES % (AUTO) 5.2 %; NEUTROPHILS % (AUTO) 71.1 %; PLT - PLATELET COUNT 169 10^3/uL (130-450); RED BLOOD COUNT 4.41 10^6/uL (4.20-5.40); RED CELL DISTRIBUTION WIDTH 13.2 % (12.0-15.0); WHITE BLOOD COUNT 9.9 x10^3/uL (4.8-10.8)
[2020-04-26 16:36] LABS: ALBUMIN 4.1 g/dL (3.2-5.5); ALBUMIN/GLOBULIN RATIO 1.3 (1.0-2.2); BILIRUBIN,TOTAL 0.6 mg/dL (0.2-1.0); CALCIUM 8.7 mg/dL (8.5-10.3); CREATININE 0.9 mg/dL (0.4-1.0); TOTAL PROTEIN 7.3 g/dL (6.7-8.2)
[2020-04-26] MEDS ORDERED: ONDANSETRON 4 MG/2 ML VIAL IVP STA (16:57)
[2020-04-26] MEDS ORDERED: KETOROLAC 30 MG/ML VIAL IVP STA (16:57)
[2020-04-26] MEDS ORDERED: HYDROmorphone 1 MG/ML CARPUJECT IVP STA ×2 (16:57→17:49)
[2020-04-26 18:07] VITALS: BP 126/83
[2020-04-26 18:39] LABS: BILIRUBIN,URINE NEGATIVE (NEGATIVE); GLUCOSE, URINE (UA) NEGATIVE (NEGATIVE); KETONES,URINE (UA) NEGATIVE (NEGATIVE); LEUKOCYTE ESTERASE, URINE NEGATIVE (NEGATIVE); NITRITE,URINE NEGATIVE (NEGATIVE); OCCULT BLOOD,URINE NEGATIVE (NEGATIVE); PH,URINE 7.5 PH (5.0-7.5); PROTEIN,URINE NEGATIVE (NEGATIVE); UROBILINOGEN,URINE 0.2 (NORMAL) E.U./dL (NORMAL)
[2020-04-26 18:45] LABS: CLARITY,URINE CLEAR (CLEAR)
== END 2020-04-26 19:12 | disposition home or self-care (01) ==
LOC: ED 15:41
DX: R10.31 Right lower quadrant pain (principal); I10 Essential (primary) hypertension
CPT/HCPCS: 36415; 80053; 81003; 83690; 85025; 96374; 96376; 99283; 99284; J1170; 81001; 87086

== ENCOUNTER 2020-11-11 15:00 | Emergency (ER) | payer OTHER ==
[2020-11-11 15:10] VITALS: BP 129/86
[2020-11-11] MEDS ORDERED: KETOROLAC 60 MG/2 ML VIAL IM STA (15:40)
[2020-11-11] MEDS ORDERED: ONDANSETRON 4 MG/2 ML VIAL IM STA (15:40)
--- NOTE | 2020-11-11 15:42 | ED Physician Documentation ---
PD HPI BACK PAIN - Stated complaint Stated Complaint: BACK PX - Chief complaint Chief Complaint: Back Pain - History obtained from History obtained from: Patient - Additional information Additional information: 35-year-old woman with chronic low back pain. She says it got worse last night but also admits that she has been overusing her medications and ran out of her oxycodone/acetaminophen early. She was prescribed 100 tablets on October [address] Rose, a 25-day supply. She ran out early and no notify Dr. Rose who subsequently prescribed her tramadol, 60 tablets, a 10-day supply on the first of this month. She is out of that to. She states that the pain got worse last night and she felt a crunch in the low back although there was no significant trauma. Pain goes down both legs. No saddle anesthesia incontinence, fever. 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 : None HEENT: None Psych: Depression, Anxiety, ADD/ADHD Musculoskeletal: None Derm: None - Past Surgical History Past Surgical History: Yes General: Gastric surgery /CHIEF PASSENGER SHIP STEWARD/STEWARDESS: section, Hysterectomy, Oophrectomy - Present Medications Home Medications: Ambulatory Orders Medication Instructions Recorded Confirmed Albuterol Sulfate [Albuterol 8.5 gm IH QID PRN 04/01/20 04/01/20 Sulfate Hfa] Budesonide/Formoterol Fumarate 10.2 gm IH DAILY 04/01/20 04/01/20 [Symbicort 160-4.5 Mcg Inhaler] Dextroamphetamine/Amphetamine 10 mg PO DAILY 04/01/20 04/01/20 [Adderall 10 mg Tablet] Estradiol [Estrace] 1.5 mg PO DAILY 04/01/20 04/01/20 Fluoxetine HCl [Prozac] 80 mg PO DAILY 04/01/20 04/01/20 Methylphenidate HCl [Concerta] 36 mg PO DAILY 04/01/20 04/01/20 Pravastatin [Pravachol] 80 mg ORAL DAILY 04/01/20 04/01/20 Progesterone, Micronized 100 mg PO DAILY 04/01/20 04/01/20 [Progesterone] Oxycodone HCl/Acetaminophen 1 - 2 each PO Q6H PRN #10 tablet 04/02/20 [Percocet 5-325 mg Tablet] Docusate Sodium 100 mg PO DAILY #30 capsule 04/26/20 Naproxen 375 mg PO BID #20 tablet 04/26/20 Psyllium Husk [Metamucil] 0.4 gm PO DAILY #30 capsule 04/26/20 Tramadol HCl 50 mg PO Q6H PRN #25 tablet 04/26/20 - Allergies Allergies/Adverse Reactions: Allergies Allergy/AdvReac Type Severity Reaction Status Date / Time No Known Drug Allergies Allergy Verified 11/11/20 15:10 - Social History Does the pt smoke?: No Smoking Status: Never smoker Does the pt drink ETOH?: Yes Does the pt have substance abuse?: No - Immunizations Immunizations are current?: Yes - POLST Patient has POLST: No POLST Status: Full Code PD ED PE NORMAL - Vitals Vital signs reviewed: Yes - General General: Alert and oriented X 3, No acute distress - Back Back: No spinal TTP - Extremities Extremities: Other (Hyperesthetic in the right L4-L5 distribution, otherwise symmetric Achilles and patellar reflexes. Normal pedal pulses.) - Neuro Neuro: Alert and oriented X 3, Normal speech Results - Vitals Vitals: Vital Signs - 24 hr 11/11/20 15:04 Temperature 36.2 C L Heart Rate 77 Respiratory 17 Rate Blood Pressure 129/86 H O2 Saturation 94 Oxygen O2 Source Room air PD MEDICAL DECISION MAKING - ED course ED course: 35-year-old woman presents to the emergency department with an exacerbation of chronic back pain without trauma or "red flags." She ran out of her medications early. She is given a shot of Toradol and Zofran here. She understands we cannot prescribe refills of narcotics etc. Departure - Departure Disposition: 01 Home, Self Care Clinical Impression: Acute exacerbation of chronic low back pain, Overuse of medication Condition: Good Record reviewed to determine appropriate education?: Yes Instructions: ED Neck Back Pain General Comments: As discussed, we cannot dispense or prescribe more pain medication. Follow-up with your primary care physician for ongoing treatment. Return for new or worsening symptoms.
== END 2020-11-11 16:21 | disposition home or self-care (01) ==
LOC: ED 15:00
DX: M54.5 Low back pain (principal); G89.29 Other chronic pain; F11.13 Opioid abuse with withdrawal; I10 Essential (primary) hypertension
CPT/HCPCS: 96372; 99283; 99284

== ENCOUNTER 2020-11-11 21:17 | Emergency (ER) | payer OTHER ==
--- NOTE | 2020-11-11 21:29 | ED Physician Documentation ---
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 HEENT: None Psych: Depression, Anxiety, ADD/ADHD Musculoskeletal: None Derm: None - Past Surgical History Past Surgical History: Yes General: Gastric surgery /NEW VEHICLE SALES CONSULTANT: section, Hysterectomy, Oophrectomy - Present Medications Home Medications: Ambulatory Orders Medication Instructions Recorded Confirmed Albuterol Sulfate [Albuterol 8.5 gm IH QID PRN 04/01/20 04/01/20 Sulfate Hfa] Budesonide/Formoterol Fumarate 10.2 gm IH DAILY 04/01/20 04/01/20 [Symbicort 160-4.5 Mcg Inhaler] Dextroamphetamine/Amphetamine 10 mg PO DAILY 04/01/20 04/01/20 [Adderall 10 mg Tablet] Estradiol [Estrace] 1.5 mg PO DAILY 04/01/20 04/01/20 Fluoxetine HCl [Prozac] 80 mg PO DAILY 04/01/20 04/01/20 Methylphenidate HCl [Concerta] 36 mg PO DAILY 04/01/20 04/01/20 Pravastatin [Pravachol] 80 mg ORAL DAILY 04/01/20 04/01/20 Progesterone, Micronized 100 mg PO DAILY 04/01/20 04/01/20 [Progesterone] Oxycodone HCl/Acetaminophen 1 - 2 each PO Q6H PRN #10 tablet 04/02/20 [Percocet 5-325 mg Tablet] Docusate Sodium 100 mg PO DAILY #30 capsule 04/26/20 Naproxen 375 mg PO BID #20 tablet 04/26/20 Psyllium Husk [Metamucil] 0.4 gm PO DAILY #30 capsule 04/26/20 Tramadol HCl 50 mg PO Q6H PRN #25 tablet 04/26/20 - Allergies Allergies/Adverse Reactions: Allergies Allergy/AdvReac Type Severity Reaction Status Date / Time No Known Drug Allergies Allergy Verified 11/11/20 21:29 - Social History Does the pt smoke?: No Smoking Status: Never smoker Does the pt drink ETOH?: Yes Does the pt have substance abuse?: No - Immunizations Immunizations are current?: Yes - POLST Patient has POLST: No POLST Status: Full Code Results - Vitals Vitals: Vital Signs - 24 hr 11/11/20 21:20 Temperature 36.0 C L Heart Rate 74 Respiratory 18 Rate Blood Pressure 136/80 H O2 Saturation 99 Oxygen O2 Source Room air
[2020-11-11] MEDS ORDERED: DEXAMETHASONE 10 MG/ML VIAL IM STA (21:48)
--- NOTE | 2020-11-11 21:48 | ED Physician Documentation ---
PD HPI BACK PAIN - Stated complaint Stated Complaint: BACK PX - Chief complaint Chief Complaint: Back Pain - History obtained from History obtained from: Patient - Additional information Additional information: This is a 35-year-old woman with chronic back pain. She was seen by me earlier in the day after she had run out of her narcotic pain [place] with an exacerbation of chronic back pain. Its in the low back and radiating to the legs consistent with prior episodes of back pain. There is no saddle anesthesia, incontinence or fevers. She was given a shot of Toradol and was clearly discussed that we could not give her or prescribe her any more narcotics. She returns now with severe back pain in the low back like her spine is on fire. Still in the usual spot. Still no red flags, no saddle anesthesia, incontinence or fevers. Review of Systems Constitutional: reports: Reviewed and negative Eyes: reports: Reviewed and negative Ears: reports: Reviewed and negative PD PAST MEDICAL HISTORY - Past Medical History Past Medical History: Yes Cardiovascular: Hypertension, High cholesterol Respiratory: Asthma Neuro: None Endocrine/Autoimmune: None GI: None HELICOPTER SPECIALIST: Endometriosis : None HEENT: None Psych: Depression, Anxiety, ADD/ADHD Musculoskeletal: None Derm: None - Past Surgical History Past Surgical History: Yes General: Gastric surgery /HELICOPTER SPECIALIST: section, Hysterectomy, Oophrectomy - Present Medications Home Medications: Ambulatory Orders Medication Instructions Recorded Confirmed Albuterol Sulfate [Albuterol 8.5 gm IH QID PRN 04/01/20 11/11/20 Sulfate Hfa] Budesonide/Formoterol Fumarate 10.2 gm IH DAILY 04/01/20 11/11/20 [Symbicort 160-4.5 Mcg Inhaler] Dextroamphetamine/Amphetamine 10 mg PO DAILY 04/01/20 11/11/20 [Adderall 10 mg Tablet] Estradiol [Estrace] 1.5 mg PO DAILY 04/01/20 11/11/20 Fluoxetine HCl [Prozac] 80 mg PO DAILY 04/01/20 11/11/20 Methylphenidate HCl [Concerta] 36 mg PO DAILY 04/01/20 11/11/20 Pravastatin [Pravachol] 80 mg ORAL DAILY 04/01/20 11/11/20 Progesterone, Micronized 100 mg PO DAILY 04/01/20 11/11/20 [Progesterone] Oxycodone HCl/Acetaminophen 1 - 2 each PO Q6H PRN #10 tablet 04/02/20 11/11/20 [Percocet 5-325 mg Tablet] Docusate Sodium 100 mg PO DAILY #30 capsule 04/26/20 11/11/20 Naproxen 375 mg PO BID #20 tablet 04/26/20 11/11/20 Psyllium Husk [Metamucil] 0.4 gm PO DAILY #30 capsule 04/26/20 11/11/20 Tramadol HCl 50 mg PO Q6H PRN #25 tablet 04/26/20 11/11/20 - Allergies Allergies/Adverse Reactions: Allergies Allergy/AdvReac Type Severity Reaction Status Date / Time No Known Drug Allergies Allergy Verified 11/11/20 21:29 - Social History Does the pt smoke?: No Smoking Status: Never smoker Does the pt drink ETOH?: Yes Does the pt have substance abuse?: No - Immunizations Immunizations are current?: Yes - POLST Patient has POLST: No POLST Status: Full Code PD ED PE NORMAL - Vitals Vital signs reviewed: Yes - General General: Alert and oriented X 3, Other (She appears uncomfortable with dilated pupils and tearful at times.) - Abdomen Abdomen: Non tender - Neuro Neuro: Alert and oriented X 3, Normal speech Results - Vitals Vitals: Vital Signs - 24 hr 11/11/20 21:20 Temperature 36.0 C L Heart Rate 74 Respiratory 18 Rate Blood Pressure 136/80 H O2 Saturation 99 Oxygen O2 Source Room air PD MEDICAL DECISION MAKING - ED course ED course: This is a 35-year-old woman who appears to be having exacerbation of chronic back pain probably exacerbated by having run out of her chronic narcotics early and there is some element of narcotic withdrawal. This is her second visit this evening after having been given a Toradol shot earlier in the evening. This time I discussed the case by phone with her physician, Dr. Rose who agrees with a shot of dexamethasone but also agrees that we should not be refilling or dispensing any narcotics. Departure - Departure Disposition: 01 Home, Self Care Clinical Impression: Acute exacerbation of chronic low back pain, Overuse of medication Condition: Good Record reviewed to determine appropriate education?: Yes Instructions: ED Low Back Pain Injury Comments: I spoke with Dr. Rose ontiveros, she asked me to give you a shot of dexamethasone which is a steroid and should help with the inflammation, pain and nausea. Follow-up with her in a couple of days as scheduled.
[2020-11-11 22:08] VITALS: BP 135/78
== END 2020-11-11 22:08 | disposition home or self-care (01) ==
LOC: ED 21:17
DX: M54.5 Low back pain (principal); G89.29 Other chronic pain; F11.13 Opioid abuse with withdrawal; I10 Essential (primary) hypertension
CPT/HCPCS: 96372

== ENCOUNTER 2021-01-13 02:11 | Emergency (ER) | payer OTHER ==
--- OUTSIDE RECORDS SUMMARY | 2021-01-13 02:16 | EXTERNAL MEDICAL SUMMARY RPT | Continuity of Care Document ---
:1985 Demographics Phone Unavailable Preferred Language Unknown Marital Status Unknown Confucianist Affiliation Unknown Race Unknown Ethnic Group Unknown Author Organization [facility] Address [address] [id number] Phone Social History date description facility [phone]
--- OUTSIDE RECORDS SUMMARY | 2021-01-13 02:20 | EXTERNAL MEDICAL SUMMARY RPT | Continuity of Care Document ---
:1985 Demographics Phone Unavailable Preferred Language Unknown Marital Status Unknown Alevism Affiliation Unknown Race Unknown Ethnic Group Unknown Author Organization [facility] Address [address] [id number] Phone Social History date description facility [phone]
[2021-01-13 02:36] LABS: BASOPHILS # (AUTO) 0.1 10^3/uL (0.0-0.1); EOSINOPHILS # (AUTO) 0.3 10^3/uL (0.0-0.7); EOSINOPHILS % (AUTO) 2.5 %; HCT - HEMATOCRIT 45.2 % (37.0-47.0); HGB - HEMOGLOBIN 15.3 g/dL (12.0-16.0); LYMPHOCYTES % (AUTO) 35.9 %; MEAN CORPUSCULAR HEMOGLOBIN 31.6 pg (27.0-31.0); MEAN CORPUSCULAR HGB CONC 33.8 g/dL (32.0-36.0); MEAN CORPUSCULAR VOLUME 93.4 fL (81.0-99.0); MEAN PLATELET VOLUME 11.2 fL (7.9-10.8); MONOCYTES # (AUTO) 0.8 10^3/uL (0.0-1.0); MONOCYTES % (AUTO) 7.5 %; NEUTROPHILS # (AUTO) 5.8 10^3/uL (1.5-6.6); NEUTROPHILS % (AUTO) 52.1 %; PLT - PLATELET COUNT 238 10^3/uL (130-450); RED BLOOD COUNT 4.84 10^6/uL (4.20-5.40); RED CELL DISTRIBUTION WIDTH 13.4 % (12.0-15.0); WHITE BLOOD COUNT 11.1 x10^3/uL (4.8-10.8)
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
[2021-01-13 02:40] LABS: BILIRUBIN,URINE NEGATIVE (NEGATIVE); GLUCOSE, URINE (UA) NEGATIVE (NEGATIVE); KETONES,URINE (UA) NEGATIVE (NEGATIVE); LEUKOCYTE ESTERASE, URINE NEGATIVE (NEGATIVE); NITRITE,URINE NEGATIVE (NEGATIVE); OCCULT BLOOD,URINE NEGATIVE (NEGATIVE); PROTEIN,URINE NEGATIVE (NEGATIVE); UROBILINOGEN,URINE 0.2 (NORMAL) E.U./dL (NORMAL)
[2021-01-13 02:43] LABS: CLARITY,URINE CLEAR (CLEAR)
[2021-01-13 02:50] LABS: ALBUMIN 4.6 g/dL (3.2-5.5); ALBUMIN/GLOBULIN RATIO 1.4 (1.0-2.2); BILIRUBIN,TOTAL 0.7 mg/dL (0.2-1.0); CALCIUM 9.9 mg/dL (8.5-10.3); CREATININE 0.8 mg/dL (0.4-1.0); POTASSIUM 3.7 mmol/L (3.5-5.0)
[2021-01-13] MEDS ORDERED: KETOROLAC 30 MG/ML VIAL IVP STA (02:55)
[2021-01-13] MEDS ORDERED: MORPHINE 2 MG/ML CARPUJECT IVP STA (02:55)
[2021-01-13] MEDS ORDERED: SODIUM CHLORIDE 0.9% 1,000 ML IV STA (02:56)
[2021-01-13] MEDS ORDERED: oxyCODONE 5 MG TABLET PO STA (04:09)
[2021-01-13 04:20] VITALS: BP 126/86
== END 2021-01-13 04:23 | disposition home or self-care (01) ==
LOC: ED 02:11
DX: R10.31 Right lower quadrant pain (principal); R10.32 Left lower quadrant pain; M54.5 Low back pain
CPT/HCPCS: 36415; 80053; 81003; 83690; 85025; 96361; 96374; 96375; 99283; 99284; A9270; 81001; 87086

== ENCOUNTER 2021-03-11 16:15 | Emergency (ER) | payer OTHER ==
--- OUTSIDE RECORDS SUMMARY | 2021-03-11 16:18 | EXTERNAL MEDICAL SUMMARY RPT | Continuity of Care Document ---
:1985 Demographics Phone Unavailable Preferred Language Unknown Marital Status Unknown Caodaism Affiliation Unknown Race Unknown Ethnic Group Unknown Author Organization [facility] Address [address] [place] [address] Phone Allergies Encounters Medications Problems Results
--- OUTSIDE RECORDS SUMMARY | 2021-03-11 16:19 | EXTERNAL MEDICAL SUMMARY RPT | Continuity of Care Document ---
:1985 Demographics Phone Unavailable Preferred Language Unknown Marital Status Unknown Scientologist Affiliation Unknown Race Unknown Ethnic Group Unknown Author Organization [facility] Address [address] [place] [address] Phone Allergies Encounters Medications Problems Results
[2021-03-11] MEDS ORDERED: HYDROmorphone 1 MG/ML CARPUJECT IM STA (17:01)
[2021-03-11] MEDS ORDERED: KETOROLAC 60 MG/2 ML VIAL IM STA (17:01)
[2021-03-11] MEDS ORDERED: LIDOCAINE PATCH 5% TOP STA (17:02)
[2021-03-11] MEDS ORDERED: ONDANSETRON ODT 4 MG TABLET TL STA (17:02)
--- NOTE | 2021-03-11 17:03 | ED Physician Documentation ---
PD HPI BACK PAIN - Stated complaint Stated Complaint: BACK PX - Chief complaint Chief Complaint: Back Pain - History obtained from History obtained from: Patient - Additional information Additional information: 35-year-old woman with chronic back pain status post recent ablation. Pain in the low back is much worse today after doing physical therapy this morning. She has shooting pain down both legs without numbness in either leg. No saddle anesthesia or fevers. Tried ibuprofen without relief. 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 : None HEENT: None Psych: Depression, Anxiety, ADD/ADHD Musculoskeletal: Chronic back pain Derm: None - Past Surgical History Past Surgical History: Yes General: Gastric surgery /NATIONAL SALES DIRECTOR: section, Hysterectomy, Oophrectomy - Present Medications Home Medications: Ambulatory Orders Medication Instructions Recorded Confirmed Albuterol Sulfate [Albuterol 8.5 gm IH QID PRN 04/01/20 01/13/21 Sulfate Hfa] Dextroamphetamine/Amphetamine 10 mg PO DAILY 04/01/20 01/13/21 [Adderall 10 mg Tablet] Estradiol [Estrace] 1.5 mg PO DAILY 04/01/20 01/13/21 Fluoxetine HCl [Prozac] 80 mg PO DAILY 04/01/20 01/13/21 Methylphenidate HCl [Concerta] 36 mg PO DAILY 04/01/20 01/13/21 Progesterone, Micronized 100 mg PO DAILY 04/01/20 01/13/21 [Progesterone] traMADol [Ultram] 50 - 100 mg PO Q6H #8 tablet 01/13/21 HYDROcod/ACETAM 5/325 [[place] 5/325] 1 - 2 tab PO Q6H PRN #10 tablet 03/11/21 Lidocaine Patch 5% [Lidoderm Patch] 1 patch TOP DAILY PRN #10 patch 03/11/21 - Allergies Allergies/Adverse Reactions: Allergies Allergy/AdvReac Type Severity Reaction Status Date / Time No Known Drug Allergies Allergy Verified 03/11/21 16:17 - Social History Does the pt smoke?: No Smoking Status: Never smoker Does the pt drink ETOH?: Yes Does the pt have substance abuse?: No - Immunizations Immunizations are current?: Yes - POLST Patient has POLST: No POLST Status: Full Code PD ED PE NORMAL - Vitals Vital signs reviewed: Yes - General General: Alert and oriented X 3, No acute distress - Back Back: No spinal TTP, Other (Diffuse muscular tenderness of the paralumbar area without specific midline spinal tenderness. Winces with motion but comfortable at rest.) - Extremities Extremities: Other (The patient has equal and normal Achilles and patellar reflexes bilaterally. Normal sensation in all areas of the legs. Patient denies saddle anesthesia. Normal strength in flexion-extension at the ankles, knees, and flexion of the hips.) - Neuro Neuro: Alert and oriented X 3, Normal speech Results - Vitals Vitals: Vital Signs - 24 hr 03/11/21 16:18 Temperature 36.8 C Heart Rate 94 Respiratory 16 Rate Blood Pressure 121/78 O2 Saturation 99 Oxygen O2 Source Room air PD MEDICAL DECISION MAKING - ED course ED course: This patient has seemingly uncomplicated musculoskeletal back pain. The patient has no "red flags." Specifically denies IV drug use, fevers, incontinence, saddle anesthesia. Spinal epidural abscess was considered, given that the patient has no fever, is not diabetic, has no spinal tenderness, does not use IV drugs, and has no bilateral neurologic symptoms, the diagnosis of spinal epidural abscess is considered exceedingly unlikely. I am prescribing a short course of short-acting opioid pain medication for this patient. I have reviewed the patients SENIOR WRITER and no concerning findings were noted. I have discussed that the opioids are for short term therapy only, and will not be refilled from the ED. Departure - Departure Disposition: 01 Home, Self Care Clinical Impression: Acute exacerbation of chronic low back pain Condition: Good Record reviewed to determine appropriate education?: Yes Instructions: ED Neck Back Pain General Prescriptions: Lidocaine Patch 5% [Lidoderm Patch] 1 patch TOP DAILY PRN #10 patch PRN Reason: pain HYDROcod/ACETAM 5/325 [[place] 5/325] 1 - 2 tab PO Q6H PRN #10 tablet PRN Reason: Pain Comments: Call your doctor to arrange a follow-up appointment, make the next available appointment. In the interim, return anytime if worse or if new symptoms develop. I am prescribing a short course of narcotic pain medication for you. These are potentially dangerous and addictive medications that should be used carefully. These medications may constipate you. Take an [id number] stool softener (docusate) twice daily with plenty of water while taking these medications. If you go 24 hours without a bowel movement, take [id number] miralax, per package instructions. Do not drink or drive while taking these medications. If you received narcotic or sedating medications while in the emergency department, do not drive for 24 hours. Store this medication in a safe, secure place and out of reach of children. It is a violation of federal law to give or sell this medication to another person or to use in a manner other than prescribed. The ED will not refill narcotic prescriptions, including prescriptions lost or stolen. To dispose of unwanted medications: 1. [facility] at [address] in [place] has a medication drop box. They accept prescription medications (in pill form) Thursday through Thursday 9:00 a.m. to 5:00 p.m. 2. The [employer] [place] [employer] accepts prescription medications (in pill form only) for disposal year round. Call for more information. 3. Contact the [facility] for the next [facility] sponsored prescription drug collection event. , [phone], or [phone]; Note that many narcotic pain relievers also contain Tylenol/acetaminophen. Please ensure that your total dose of acetaminophen from all sources does not exceed 3 g (3000 mg) per day.
[2021-03-11 17:39] VITALS: BP 119/90
== END 2021-03-11 17:37 | disposition home or self-care (01) ==
LOC: ED 16:15
DX: M54.5 Low back pain (principal); G89.29 Other chronic pain; M79.604 Pain in right leg; M79.605 Pain in left leg; I10 Essential (primary) hypertension
CPT/HCPCS: 96372; 99283; A9270; J1170; Q0162

== ENCOUNTER 2021-03-27 18:47 | Emergency (ER) | payer OTHER ==
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
[2021-03-27] MEDS ORDERED: traMADol 50 MG TABLET PO STA (19:53)
[2021-03-27] MEDS ORDERED: KETOROLAC 60 MG/2 ML VIAL IM STA (19:53)
[2021-03-27] MEDS ORDERED: diazePAM 5 MG TABLET PO STA (19:53)
[2021-03-27] MEDS ORDERED: DEXAMETHASONE 10 MG/ML VIAL PO STA (19:54)
[2021-03-27] MEDS ORDERED: CHERRY SYRUP 10 ML UDC PO ONE (19:54)
[2021-03-27 20:41] VITALS: BP 117/70
== END 2021-03-27 20:50 | disposition home or self-care (01) ==
LOC: ED 18:47
DX: M54.5 Low back pain (principal); G89.29 Other chronic pain; I10 Essential (primary) hypertension
CPT/HCPCS: 96372; 99282; 99283; A9270

== ENCOUNTER 2022-11-06 13:37 | Emergency (ER) | payer OTHER ==
[2022-11-06 14:03] VITALS: BP 123/84
--- NOTE | 2022-11-06 14:09 | ED Physician Documentation ---
History of Present Illness - Stated complaint Stated Complaint: L SIDE SWOLLEN - Chief complaint Chief Complaint: Heent - History obtained from History obtained from: Patient - Additonal information Additional information: 37-year-old female with past medical history of chronic pain and anxiety who presents with concerns that she has increasing left-sided swelling. I saw her on 11/03 for a dental infection and she was started on Augmentin. She states that swelling went completely away but then she feels like it is coming back and she has some pain radiating into the left chest wall that is reproducible with palpation. She has not had a fever, no difficulty swallowing, on no difficulty turning her neck. She has no shortness of breath or new cough. She has no exertional chest pain. She has been taking antibiotics as prescribed and states that she has a dental appointment on Thursday for reevaluation. 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 : None HEENT: None Psych: Depression, Anxiety, ADD/ADHD Musculoskeletal: Chronic back pain Derm: None - Past Surgical History Past Surgical History: Yes General: Gastric surgery /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: section, Hysterectomy, Oophrectomy - Present Medications Home Medications: Ambulatory Orders Medication Instructions Recorded Confirmed Albuterol Sulfate [Albuterol 8.5 gm IH QID PRN 04/01/20 01/13/21 Sulfate Hfa] Dextroamphetamine/Amphetamine 10 mg PO DAILY 04/01/20 01/13/21 [Adderall 10 mg Tablet] Estradiol [Estrace] 1.5 mg PO DAILY 04/01/20 01/13/21 Fluoxetine HCl [Prozac] 80 mg PO DAILY 04/01/20 01/13/21 Methylphenidate HCl [Concerta] 36 mg PO DAILY 04/01/20 01/13/21 Progesterone, Micronized 100 mg PO DAILY 04/01/20 01/13/21 [Progesterone] traMADol [Ultram] 50 - 100 mg PO Q6H #8 tablet 01/13/21 HYDROcod/ACETAM 5/325 [[place] 5/325] 1 - 2 tab PO Q6H PRN #10 tablet 03/11/21 Lidocaine Patch 5% [Lidoderm Patch] 1 patch TOP DAILY PRN #10 patch 03/11/21 Amox/Clav 875/125 [Augmentin 1 tablet PO Q12H 10 Days #20 tablet 11/03/22 875/125 Tab] predniSONE [Deltasone] 40 mg PO DAILY 5 Days #10 tablet 11/06/22 - Allergies Allergies/Adverse Reactions: Allergies Allergy/AdvReac Type Severity Reaction Status Date / Time alprazolam [From Xanax] AdvReac Hallucinati Verified 11/03/22 11:42 ons - Social History Does the pt smoke?: No Smoking Status: Never smoker Does the pt drink ETOH?: Yes Does the pt have substance abuse?: No - Immunizations Immunizations are current?: Yes - POLST Patient has POLST: No POLST Status: Full Code PD ED PE NORMAL - Vitals Vital signs reviewed: Yes - General General: Alert and oriented X 3, No acute distress, Well developed/nourished - HEENT HEENT: Atraumatic, Pharynx benign, Other (Left lower premolar with infection, no visible abscess, swelling is substantially down from last assessment, there is very mild mid submandibular swelling, no facial erythema.) - Neck Neck: Supple, no meningeal sign, No JVD - Cardiac Cardiac: RRR, No murmur, Other (Mild left upper chest wall tenderness to palpation,) - Respiratory Respiratory: No respiratory distress, Clear bilaterally Results - Vitals Vitals: Vital Signs - 24 hr 11/06/22 13:59 Temperature 36.7 C Heart Rate 63 Respiratory 16 Rate Blood Pressure 123/84 H O2 Saturation 98 Oxygen O2 Source Room air - EKG (time done) No standard instances Rate: Rate (enter#) (61) Rhythm: NSR [place]: Normal Intervals: Normal TN QRS: Normal Ischemia: Normal ST segments Computer interpretation: Agree with computer PD Medical Decision Making - ED course Complexity details: re-evaluated patient, d/w patient, d/w family ED course: Pt presents For follow-up of left-sided facial swelling with dental infection. She is still on Augmentin and her facial swelling has gone down substantially since her last visit here. There is no facial erythema, no fever, no difficulty swallowing. The patient does have some ongoing pain, likely secondary to her chronic pain issues and after long discussion with her, will give a short course of steroids that may help with the pain though I did caution her on the potential side effects, and she was also given 4 mg of IM morphine with improvement in her symptoms. An EKG was obtained in triage due to her complaint of chest pain and this Shows normal sinus rhythm, no acute ischemic changes. Pain is reproducible and I have very low suspicion for PE, pneumonia, or ACS in this patient and therefore additional evaluation not done, this is likely referred pain from her dental infection.She will follow up with dentist on Thursday. Departure - Departure Disposition: , Self Care Clinical Impression: Pain due to dental caries Condition: Good Instructions: ED Tooth Pain Prescriptions: predniSONE [Deltasone] 40 mg PO DAILY 5 Days #10 tablet Comments: Please continue the antibiotics that you have been prescribed. Follow-up with your dentist on Thursday as scheduled. I have given you a short course of steroids to help with some of the discomfort. You also received A single dose of intramuscular morphine here in the ER. Continue to take your pain medication as prescribed at home. Your EKG and physical exam today are stable.
[2022-11-06] MEDS ORDERED: MORPHINE 2 MG/ML CARPUJECT IM STA (14:28)
== END 2022-11-06 14:55 | disposition home or self-care (01) ==
LOC: ED 13:37
DX: K02.9 Dental caries, unspecified (principal); R22.0 Localized swelling, mass and lump, head; R07.9 Chest pain, unspecified
CPT/HCPCS: 93005; 96374; 99283

== ENCOUNTER 2022-11-20 12:23 | Outpatient (CLI) | payer OTHER | END 2022-11-20 12:24 | disposition home or self-care (01) | LOC: DI 12:23 | PROVIDERS: ATTEND Family Medicine | DX: R00.2 Palpitations (principal); R60.9 Edema, unspecified | CPT/HCPCS: 93306 ==

== ENCOUNTER 2023-01-27 10:49 | Outpatient (CLI) | payer OTHER ==
[2023-01-27] MEDS ORDERED: NITROGLYCERIN SL 0.4 MG TABLET SL ONE (11:09)
--- NOTE | 2023-01-27 11:23 | CARDIAC PROCEDURE NOTE ---
Stress Test Report Service Date: 01/27/23 Service Time: 11:00 Ordering Provider: Roberto Angela MD Indication for Test: Assess exercise response in patient with several year history of atypical chest discomfort with reported palpitations and tachycardia on exertion. Significant Medical History: Valerie has a complex medical history that includes fibromyalgia/chronic pain and ADHD, for which she has been on a multi-drug regimen for some time. She reports that approximately 5 years ago she began to experience an inappropriate increase in heart rate with exercise, for which atenolol was started at some point, with some attenuation of this abnormal heart rate response. She is referred by Dr. Angela as part of an evaluation for her exertional palpitations, as well as chest pain that occurs either with exertion or at rest, centered in the left upper chest and sometimes radiating to the left arm, sometimes associated with diaphoresis, lasting minutes to hours. Palpation over the area can be somewhat helpful as well as resting, when the pain onset has been exertional. Overall she is quite sedentary, mostly due concern for worsening her musculoskeletal discomfort. Cardiac Risk Factors: Positive for diagnosed hypertension for about 2 years and history of light tobacco smoking (2-3 cigarettes/day) for ~23 years before quitting altogether in July 2022; negative for hyperlipidemia, diabetes and known family history of atherosclerotic disease. She also underwent LUCIANA/BSO seven years ago, but has remained on continuous estrogen/progesterone replacement. Type of Stress Test: Exercise Treadmill Test (ETT) Procedure: -Exercise Treadmill Test- After signing informed consent, the patient performed treadmill exercise using a Juan protocol. The patient exercised for 7 minutes 18 seconds and achieved a peak heart rate of 156 (85 percent predicted maximum heart rate for age), and an estimated workload of 9 METS. The test was terminated primarily due to increasing chest and left arm pain, upon reaching her target heart rate. Resting heart rate: 81 Peak heart rate: 156 Normal response to exercise. Resting BP: 117/73 Peak BP: 187/54 Normal exercise response of systolic and diastolic BPs. Rhythm during exercise: Sinus rhythm with normal graded increase with each exercise stage. Symptoms: She described CP at 2/10 intensity at rest, increasing gradually to 8/10 severity in late exercise with late onset left arm pain. Following exercise conclusion she was given a nitroglycerin tablet while seated, and monitored further during the recovery period. She reported discomfort rated as 6/10 at the time of NTG administration gradually decreasing to 2/10 a few minutes later. EKG at rest showed normal sinus rhythm normal in all aspects. EKG at peak stress showed J-point depression with upsloping ST segments, NOT meeting EKG criteria for ischemia. In Recovery HR and BP normally and rapidly decreased towards baseline resting levels. No imaging was ordered with this stress test. Fredi Keene MD, was present throughout this treadmill stress study and supervised it in its entirety. Summary: 1) Exercise tolerance significantly reduced for age and sex as evidenced by OJHN of 19.3%. 2) Normal resting EKG. 3) Adequate level of exercise was achieved on this treadmill stress test. 4) Normal response of HR and BP to exercise. 5) No ischemic changes by EKG criteria were seen at peak stress. 6) No imaging was ordered with this test Summary and Conclusions: 1) Juan protocol ETT with reassuring results regarding physiologic HR and BP responses, with no EKG evidence of inducible ischemia, in spite of patient experiencing her usual chest/left arm discomfort with exercise. 2) No clear benefit of a SL NTG tablet administered in Recovery for chest/arm discomfort. 3) Rhythm assessment with a Zio patch is ongoing. 4) The patient did try increasing atenolol to BID a couple of times with perceived improvement in palpitations, though she does not wish to take it twice daily; a trial of metoprolol succinate may be considered.
[2023-01-27] MEDS ORDERED: NITROGLYCERIN SL 0.4 MG TABLET SL STA (11:30)
== END 2023-01-27 10:50 | disposition home or self-care (01) ==
LOC: DI 10:49
PROVIDERS: ATTEND Internal Medicine Cardiovascular Disease
DX: R00.2 Palpitations (principal); Z87.891 Personal history of nicotine dependence
CPT/HCPCS: 93017; A9270